=== PATIENT | male | born 1995 | race Caucasian/White ===

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

== ENCOUNTER 2017-01-23 22:40 | Emergency (ER) | payer OTHER ==
[~2017-01-23] VITALS: Ht 162.6 cm; Wt 59.9 kg
[2017-01-24 01:10] VITALS: BP 118/84
== END 2017-01-24 01:10 | disposition home or self-care (01) ==
LOC: ED 22:40
DX: J03.90 Acute tonsillitis, unspecified (principal); L30.1 Dyshidrosis [pompholyx]

== ENCOUNTER 2017-07-19 20:51 | Emergency (ER) | payer OTHER ==
[~2017-07-19] VITALS: Ht 167.6 cm; Wt 64.9 kg
[2017-07-19 20:58] VITALS: Ht 167.6 cm; Wt 64.9 kg
[2017-07-19 23:14] VITALS: BP 100/55
== END 2017-07-19 23:14 | disposition home or self-care (01) ==
LOC: ED 20:51
DX: T78.1XXA Other adverse food reactions, not elsewhere classified, initial encounter (principal); R21 Rash and other nonspecific skin eruption; D61.9 Aplastic anemia, unspecified; Z91.010 Allergy to peanuts; X58.XXXA Exposure to other specified factors, initial encounter
CPT/HCPCS: J0171; J1200; J2405; J2930; J3490; J7030

== ENCOUNTER 2018-05-27 20:17 | Emergency (ER) | payer OTHER ==
[~2018-05-27] VITALS: Ht 165.1 cm; Wt 61.7 kg
[2018-05-27 20:21] VITALS: Ht 165.1 cm; Wt 61.7 kg
[2018-05-27 22:43] LABS: BASOPHIL % 0.4 % (0-2); PLATELET COUNT 170 x10^3mcL (130-400); RED CELL DISTRIBUTION WIDTH 13.1 % (11.5-14.5)
[2018-05-27 22:53] LABS: CALCIUM 9.3 mg/dL (8.5-10.1); CARBON DIOXIDE 25.4 mmol/L (21-32); CHLORIDE SERUM 103 mmol/L (98-107); CREATININE SERUM 0.8 mg/dL (0.7-1.3); GFR1 > 60 mL/min; GLUCOSE SERUM 93 mg/dL (74-106); POTASSIUM SERUM 3.8 mmol/L (3.5-5.1); SODIUM SERUM 136 mmol/L (136-145)
[2018-05-27 23:00] LABS: ALBUMIN 4.3 g/dL (3.4-5.0); ALKALINE PHOSPHATASE 76 U/L (46-116); ALT/SGPT 19 U/L (16-63); AST/SGOT 14 U/L (15-37); BILIRUBIN TOTAL 0.4 mg/dL (0.20-1.00); HDL CHOLESTEROL 48 mg/dL (40-60); TOTAL PROTEIN, SERUM 7.5 g/dL (6.4-8.2)
[2018-05-27 23:03] LABS: CHOLESTEROL 129 mg/dL (<200)
[2018-05-27 23:38] LABS: T3 TOTAL 1.22 ng/mL
[2018-05-27 23:40] LABS: FREE T4 1.43 ng/dL (0.76-1.46); T4(THYROXINE) 10.7 ug/dL (4.7-13.3)
[2018-05-28 00:53] VITALS: BP 121/82
== END 2018-05-28 00:52 | disposition home or self-care (01) ==
LOC: ED 20:17
PROVIDERS: Emergency Medicine
DX: R55 Syncope and collapse (principal); G47.00 Insomnia, unspecified; R63.4 Abnormal weight loss; Z86.2 Personal history of diseases of the blood and blood-forming organs and certain disorders involving the immune mechanism
CPT/HCPCS: 36415; 84439; Q0092

== ENCOUNTER 2018-09-06 17:17 | Emergency (ER) | payer OTHER ==
[~2018-09-06] VITALS: Ht 162.6 cm; Wt 61.7 kg
[2018-09-06 17:40] VITALS: Ht 162.6 cm; Wt 61.7 kg
[2018-09-06 20:46] LABS: PLATELET COUNT 138 x10^3mcL (130-400); RED CELL DISTRIBUTION WIDTH 13.1 % (11.5-14.5)
[2018-09-06 21:00] LABS: CALCIUM 9.1 mg/dL (8.5-10.1); CARBON DIOXIDE 23.6 mmol/L (21-32); CHLORIDE SERUM 98 mmol/L (98-107); CREATININE SERUM 1.2 mg/dL (0.7-1.3); GFR1 > 60 mL/min; GLUCOSE SERUM 110 mg/dL (74-106); POTASSIUM SERUM 3.5 mmol/L (3.5-5.1); SODIUM SERUM 134 mmol/L (136-145)
[2018-09-06 21:05] LABS: ALBUMIN 4.2 g/dL (3.4-5.0); ALKALINE PHOSPHATASE 69 U/L (46-116); ALT/SGPT 21 U/L (16-63); AST/SGOT 16 U/L (15-37); BILIRUBIN TOTAL 0.4 mg/dL (0.20-1.00); C REACTIVE PROTEIN 10.4 mg/dL (<=0.9)
[2018-09-06 21:28] LABS: BAND NEUTROPHIL 10 % (0-10); BASOPHIL 0 % (0-2); MONOCYTE 8 % (0-7); PLATELET MORPHOLOGY PLATELETS NORMAL; SEGMENTED NEUTROPHILS 67 % (37-75); rbc morphology (normal/abnorm) NORMAL (NORMAL)
[2018-09-06 22:35] VITALS: BP 102/62
== END 2018-09-06 23:25 | disposition home or self-care (01) ==
LOC: ED 17:17
PROVIDERS: Emergency Medicine
DX: J10.1 Influenza due to other identified influenza virus with other respiratory manifestations (principal); R51 Headache; Z86.2 Personal history of diseases of the blood and blood-forming organs and certain disorders involving the immune mechanism
CPT/HCPCS: 36415; 87804

== ENCOUNTER 2018-09-08 06:53 | Inpatient (IN) | payer OTHER ==
[~2018-09-08] VITALS: Ht 162.6 cm; Wt 63.5 kg
[2018-09-08 06:59] VITALS: Ht 162.6 cm; Wt 63.5 kg
[2018-09-08 08:00] LABS: CALCIUM 9.1 mg/dL (8.5-10.1); CARBON DIOXIDE 29.6 mmol/L (21-32); CHLORIDE SERUM 103 mmol/L (98-107); CREATININE SERUM 0.9 mg/dL (0.7-1.3); GFR1 > 60 mL/min; GLUCOSE SERUM 107 mg/dL (74-106); POTASSIUM SERUM 4.1 mmol/L (3.5-5.1); SODIUM SERUM 138 mmol/L (136-145)
[2018-09-08 08:04] LABS: ALBUMIN 3.6 g/dL (3.4-5.0); ALKALINE PHOSPHATASE 61 U/L (46-116); ALT/SGPT 33 U/L (16-63); AST/SGOT 27 U/L (15-37); BILIRUBIN TOTAL 0.3 mg/dL (0.20-1.00); LIPASE 119 IU/L (73-393); TOTAL PROTEIN, SERUM 7.5 g/dL (6.4-8.2)
[2018-09-08 08:16] LABS: BASOPHIL % 0.1 % (0-2); PLATELET COUNT 140 x10^3mcL (130-400); RED CELL DISTRIBUTION WIDTH 13.2 % (11.5-14.5)
[2018-09-08] MEDS ORDERED: CYCLOSPORINE25 M2 PO (09:32)
[2018-09-08 10:19] LABS: UA SPECIFIC GRAVITY <=1.005 (1.005-1.035); microscopic required? YES; urine erythrocyte TRACE (NEGATIVE)
[2018-09-08 12:25] VITALS: BP 96/60
[2018-09-08 18:00] VITALS: BP 97/58
[2018-09-08 21:41] VITALS: BP 100/65
[2018-09-09 05:45] VITALS: BP 98/53
[2018-09-09 07:25] LABS: CALCIUM 8.1 mg/dL (8.5-10.1); CARBON DIOXIDE 24.2 mmol/L (21-32); CHLORIDE SERUM 108 mmol/L (98-107); CREATININE SERUM 0.8 mg/dL (0.7-1.3); GFR1 > 60 mL/min; GLUCOSE SERUM 94 mg/dL (74-106); POTASSIUM SERUM 3.8 mmol/L (3.5-5.1); SODIUM SERUM 142 mmol/L (136-145)
[2018-09-09 08:28] LABS: BASOPHIL % 0.4 % (0-2); RED CELL DISTRIBUTION WIDTH 13.7 % (11.5-14.5)
[2018-09-09 08:43] LABS: PLATELET COUNT 114 x10^3mcL (130-400)
[2018-09-09 09:25] VITALS: BP 98/58
[2018-09-09 18:03] VITALS: BP 95/55
[2018-09-09 21:26] VITALS: BP 102/63
[2018-09-10 06:13] VITALS: BP 95/60
[2018-09-10 09:45] VITALS: BP 105/58
[2018-09-10 09:57] LABS: BASOPHIL % 0.5 % (0-2); PLATELET COUNT 136 x10^3mcL (130-400); RED CELL DISTRIBUTION WIDTH 13.1 % (11.5-14.5)
[2018-09-10 10:27] LABS: CALCIUM 8.9 mg/dL (8.5-10.1); CARBON DIOXIDE 26.9 mmol/L (21-32); CHLORIDE SERUM 105 mmol/L (98-107); CREATININE SERUM 0.8 mg/dL (0.7-1.3); GFR1 > 60 mL/min; GLUCOSE SERUM 91 mg/dL (74-106); POTASSIUM SERUM 3.7 mmol/L (3.5-5.1); SODIUM SERUM 141 mmol/L (136-145)
[2018-09-10 12:50] VITALS: BP 105/58
[2018-09-10 15:34] VITALS: BP 105/58
== END 2018-09-10 16:50 | disposition home or self-care (01) | DRG 249 ==
LOC: ED 06:53 → MU 09:33
PROVIDERS: Emergency Medicine; ADMIT Internal Medicine
DX: A09 Infectious gastroenteritis and colitis, unspecified (principal); D61.9 Aplastic anemia, unspecified; D84.9 Immunodeficiency, unspecified
CPT/HCPCS: 87046; 87046-59; J1956; J2270; J2405; J3010; J3490; J7030; J7042; Q9967

== ENCOUNTER 2019-07-28 10:29 | Emergency (ER) | payer SELFPAY ==
[~2019-07-28 10:29] MED LIST: CYCLOSPORINE25 M2 PO
== END 2019-07-28 13:08 | disposition left against medical advice (07) ==
LOC: ED 10:29
DX: Z53.21 Procedure and treatment not carried out due to patient leaving prior to being seen by health care provider (principal)